=== PATIENT | male | born 1970 | race African-American/Black ===

== ENCOUNTER 2024-11-18 17:41 | Inpatient (IN) | payer OTHER ==
[~2024-11-18] VITALS: Ht 188 cm; Wt 100.3 kg
[2024-11-18 18:03] LABS: BASOPHILS % 0.6 % (0.0-2.0); EOSINOPHILS % 2.3 % (0.0-5.0); HEMATOCRIT. 45.2 % (42.0-52.0); HEMOGLOBIN. 15.1 g/dL (14.0-18.0); LYMPHOCYTES % 40.8 % (20.0-50.0); MEAN CORPUSCULAR HEMOGLOBIN 30.9 pg (28.0-32.0); MEAN CORPUSCULAR HGB CONC 33.3 g/dL (31.0-37.0); MEAN CORPUSCULAR VOLUME 92.9 fL (80.0-94.0); MEAN PLATELET VOLUME 9.5 fl (7.4-10.4); MONOCYTES % 12.7 % (2.0-8.0); NEUTROPHILS % 43.6 % (40.0-76.0); PLATELET 185 x1000/uL (130-400); RED BLOOD CELL COUNT 4.87 mill/uL (4.7-6.1); RED CELL DISTRIBUTION WIDTH 13.5 % (11.6-14.6); WHITE BLOOD COUNT 6.7 x1000/uL (4.5-11.0)
[2024-11-18 18:12] LABS: CHLORIDE 101 mEq/L (98-107); SODIUM 137 mEq/L (136-145)
[2024-11-18 18:13] LABS: CALCIUM 9.7 mg/dL (8.7-10.4); CARBON DIOXIDE 19 mEq/L (21-32)
[2024-11-18 18:18] LABS: CREATININE 1.5 mg/dL (0.6-1.3); GLUCOSE 104 mg/dL (70-105); UREA NITROGEN BLOOD 20 mg/dL (9-23)
[2024-11-18 18:20] LABS: ALANINE AMINOTRANSFERASE 34 IU/L (10-49); ALBUMIN 4.9 g/dL (3.2-4.8); ASPARTATE AMINOTRANSFERASE 43 IU/L (<34); BILIRUBIN DIRECT 0.6 mg/dL (<=3.0); BILIRUBIN TOTAL 2.2 mg/dL (0.1-1.0); PROTEIN TOTAL 7.9 g/dL (6.0-8.3)
[2024-11-18 18:24] LABS: D-DIMER 1.13 mg/L FEU (<0.50); PROTHROMBIN TIME 11.2 sec (9.6-11.0); TROPONIN I HIGH SENSITIVITY 674 ng/L (3.0-53)
[2024-11-18] MEDS: POTASSIUM CHLORIDE 20MEQ/PACKET PO NR (20:57)
[2024-11-18] MEDS: ASPIRIN 325MG EC TABLET PO NR (20:57)
[2024-11-18] MEDS: ENOXAPARIN 80MG/0.8ML SYR SUBCUT NR (21:01)
[2024-11-18 21:32] LABS: CLARITY URINE CLEAR (CLEAR); COLOR URINE YELLOW (YELLOW); GLUCOSE URINE NEGATIVE (NEGATIVE); KETONES URINE 3+ (NEGATIVE); LEUKOCYTE ESTERASE URINE NEGATIVE (NEGATIVE); NITRITE URINE NEGATIVE (NEGATIVE); OCCULT BLOOD URINE TRACE (NEGATIVE); PH URINE 5.5 (4.5-8.0); PROTEIN URINE NEGATIVE (NEGATIVE); SPECIFIC GRAVITY URINE 1.055 (1.005-1.030); UROBILINOGEN URINE 0.2 E.U./dL (0.2-1.0)
[2024-11-18 22:03] LABS: BACTERIA URINE NONE SEEN; RBC URINE 0-2 /hpf (0-2); SQUAMOUS EPITHELIAL CELL URINE RARE /lpf (RARE/1+); WBC URINE 0-2 /hpf (0-2)
[2024-11-18 22:35] VITALS: BP 127/79; PULSE 65; RESP 18; TEMP 36.28068; TEMP 36.696; O2SAT 98
[2024-11-18] MEDS ORDERED: IOHEXOL-350 100 ML BOTTLE ONE (23:24)
[2024-11-19] VITALS: BP 123/70; PULSE 64; RESP 18; TEMP 36.114; O2SAT 100
[2024-11-19] MEDS ORDERED: ZOLPIDEM TARTRATE 5MG TABLET PO PRN
[2024-11-19] MEDS ORDERED: HYDRALAZINE 20MG/ML VIAL IV PRN
[2024-11-19] MEDS ORDERED: ONDANSETRON HCL 4MG/2ML INJ IV PRN
[2024-11-19] MEDS ORDERED: ACETAMINOPHEN 325MG TABLET PO PRN
[2024-11-19] MEDS ORDERED: HYDROCODONE/ACETAMINOPHEN 5/325MG TABLET PO PRN
[2024-11-19] MEDS ORDERED: CLONIDINE 0.1MG TABLET PO PRN
[2024-11-19] MEDS ORDERED: IPRATROPIUM/ALBUTEROL 0.5-3(2.5)MG/3ML NEB NEB PRN
[2024-11-19] MEDS ORDERED: MORPHINE SULFATE 2 MG/ML INJ (NOT FOR IM USE) IV PRN
[2024-11-19] MEDS: DEXT 5%/0.9% NACL 1,000 ML IV SCH (00:25)
[2024-11-19] MEDS ORDERED: ROSU40TA PO (01:39)
[2024-11-19] MEDS ORDERED: AZIL40TA PO (01:39)
[2024-11-19 04:00] VITALS: BP 103/69; PULSE 68; RESP 18; TEMP 36.28068; O2SAT 100
[2024-11-19 05:31] LABS: *AMPHETAMINES SCREEN URINE NEGATIVE (NEGATIVE); *BARBITURATES SCREEN URINE NEGATIVE (NEGATIVE); *BENZODIAZEPINES SCREEN URINE NEGATIVE (NEGATIVE); *COCAINE SCREEN URINE NEGATIVE (NEGATIVE)
[2024-11-19 05:32] LABS: CANNABINOID URINE SCREEN NEGATIVE (NEGATIVE); ECSTASY MDMA SCREEN URINE NEGATIVE (NEGATIVE); METHADONE URINE SCREEN NEGATIVE (NEGATIVE); OPIATES URINE SCREEN NEGATIVE (NEGATIVE); PHENCYCLIDINE URINE SCREEN NEGATIVE (NEGATIVE)
[2024-11-19 07:55] LABS: CREATINE KINASE MB FRACTION 25.9 ng/mL (0.5-3.6)
[2024-11-19 07:57] LABS: CHLORIDE 105 mEq/L (98-107); POTASSIUM 3.5 mEq/L (3.5-5.1); SODIUM 136 mEq/L (136-145)
[2024-11-19 07:58] LABS: CALCIUM 9.2 mg/dL (8.7-10.4); CARBON DIOXIDE 18 mEq/L (21-32)
[2024-11-19 08:00] VITALS: BP 133/77; PULSE 63; RESP 16; TEMP 36.50292; O2SAT 99
[2024-11-19 08:02] LABS: THYROID STIMULATING HORMONE < 0.10 uIU/mL (0.55-4.78)
[2024-11-19 08:03] LABS: GLUCOSE 91 mg/dL (70-105); TRIGLYCERIDE 75 mg/dL (0-150)
[2024-11-19 08:04] LABS: LDL CHOLESTEROL 68 mg/dL (5-100); UREA NITROGEN BLOOD 13 mg/dL (9-23)
[2024-11-19 08:05] LABS: CHOLESTEROL 134 mg/dL (<200); HDL CHOLESTEROL 42 mg/dL (>55)
[2024-11-19 08:41] LABS: CREATINE KINASE 7805 IU/L (46-171)
[2024-11-19 10:14] LABS: BASOPHILS % 0.4 % (0.0-2.0); EOSINOPHILS % 1.9 % (0.0-5.0); HEMATOCRIT. 42.2 % (42.0-52.0); HEMOGLOBIN. 14.3 g/dL (14.0-18.0); LYMPHOCYTES % 21.6 % (20.0-50.0); MEAN CORPUSCULAR HEMOGLOBIN 31.3 pg (28.0-32.0); MEAN CORPUSCULAR HGB CONC 33.9 g/dL (31.0-37.0); MEAN CORPUSCULAR VOLUME 92.2 fL (80.0-94.0); MEAN PLATELET VOLUME 10.4 fl (7.4-10.4); MONOCYTES % 10.7 % (2.0-8.0); NEUTROPHILS % 65.4 % (40.0-76.0); PLATELET 161 x1000/uL (130-400); RED BLOOD CELL COUNT 4.58 mill/uL (4.7-6.1); RED CELL DISTRIBUTION WIDTH 13.3 % (11.6-14.6); WHITE BLOOD COUNT 6.6 x1000/uL (4.5-11.0)
[2024-11-19] MEDS: ASPIRIN 81MG EC TABLET PO SCH (10:39)
[2024-11-19] MEDS: PANTOPRAZOLE SODIUM 40 MG/VIAL IV SCH (10:39)
[2024-11-19] MEDS: ENOXAPARIN 40MG/0.4ML SYR SUBCUT SCH (10:40)
[2024-11-19 12:00] VITALS: BP 129/82; PULSE 63; RESP 18; TEMP 36.00288; O2SAT 97
[2024-11-19] MEDS: AMIODARONE 200MG TABLET PO SCH (12:15)
[2024-11-19] MEDS: POTASSIUM CHLORIDE 20MEQ/PACKET PO NR (12:15)
[2024-11-19] MEDS: MAGNESIUM 2 G PREMIX 50 ML IV NR (14:59)
[2024-11-19 15:29] LABS: TROPONIN I HIGH SENSITIVITY 11089 ng/L (3.0-53)
[2024-11-19 20:00] VITALS: BP 125/88; PULSE 65; RESP 18; TEMP 36.22512; O2SAT 97
[2024-11-19] MEDS ORDERED: NALOXONE HCL 0.4MG/ML VIAL IV PRN (21:45)
[2024-11-20 04:00] VITALS: BP 117/73; PULSE 56; RESP 18; TEMP 36.33624; O2SAT 97
[2024-11-20 08:00] VITALS: BP 125/78; PULSE 59; RESP 16; TEMP 36.50292; O2SAT 97
[2024-11-20 09:11] LABS: BASOPHILS % 0.7 % (0.0-2.0); EOSINOPHILS % 2.5 % (0.0-5.0); HEMATOCRIT. 39.9 % (42.0-52.0); HEMOGLOBIN. 13.6 g/dL (14.0-18.0); LYMPHOCYTES % 25.2 % (20.0-50.0); MEAN CORPUSCULAR HEMOGLOBIN 31.3 pg (28.0-32.0); MEAN CORPUSCULAR HGB CONC 34.1 g/dL (31.0-37.0); MEAN CORPUSCULAR VOLUME 91.7 fL (80.0-94.0); MEAN PLATELET VOLUME 10.4 fl (7.4-10.4); MONOCYTES % 10.8 % (2.0-8.0); NEUTROPHILS % 60.8 % (40.0-76.0); PLATELET 157 x1000/uL (130-400); RED BLOOD CELL COUNT 4.35 mill/uL (4.7-6.1); RED CELL DISTRIBUTION WIDTH 13.8 % (11.6-14.6); WHITE BLOOD COUNT 5.1 x1000/uL (4.5-11.0)
[2024-11-20 09:33] LABS: CHLORIDE 109 mEq/L (98-107); POTASSIUM 3.8 mEq/L (3.5-5.1); SODIUM 140 mEq/L (136-145)
[2024-11-20 09:34] LABS: CARBON DIOXIDE 21 mEq/L (21-32)
[2024-11-20 09:39] LABS: CREATININE 1.1 mg/dL (0.6-1.3); GLUCOSE 82 mg/dL (70-105); UREA NITROGEN BLOOD 12 mg/dL (9-23)
[2024-11-20] MEDS: NITROGLYCERIN SPRAY/4.9GM CAN TL ONE (11:10)
[2024-11-20] MEDS ORDERED: IOHEXOL-350 100 ML BOTTLE ONE (11:59)
[2024-11-20 12:00] VITALS: BP 119/74; PULSE 57; RESP 16; O2SAT 98
[2024-11-20 16:00] VITALS: BP 119/83; PULSE 59; RESP 16; TEMP 36.22512; O2SAT 98
[2024-11-20 20:00] VITALS: BP 128/80; PULSE 61; RESP 16; TEMP 36.89184; O2SAT 98
[2024-11-20] MEDS: ATORVASTATIN CALCIUM 40MG TABLET PO SCH (21:35)
[2024-11-21] VITALS: BP 107/71; PULSE 56; RESP 14; TEMP 36.78072; O2SAT 97
[2024-11-21 04:00] VITALS: BP 98/56; PULSE 61; RESP 16; TEMP 36.55848; O2SAT 98
[2024-11-21 06:42] LABS: BASOPHILS % 0.5 % (0.0-2.0); EOSINOPHILS % 3.3 % (0.0-5.0); HEMATOCRIT. 37.9 % (42.0-52.0); LYMPHOCYTES % 27.3 % (20.0-50.0); MEAN CORPUSCULAR HEMOGLOBIN 31.7 pg (28.0-32.0); MEAN CORPUSCULAR HGB CONC 34.4 g/dL (31.0-37.0); MEAN PLATELET VOLUME 9.8 fl (7.4-10.4); MONOCYTES % 11.8 % (2.0-8.0); NEUTROPHILS % 57.1 % (40.0-76.0); PLATELET 142 x1000/uL (130-400); RED BLOOD CELL COUNT 4.12 mill/uL (4.7-6.1); RED CELL DISTRIBUTION WIDTH 13.6 % (11.6-14.6)
[2024-11-21 06:50] LABS: CARBON DIOXIDE 25 mEq/L (21-32); CHLORIDE 107 mEq/L (98-107); POTASSIUM 3.5 mEq/L (3.5-5.1); SODIUM 140 mEq/L (136-145)
[2024-11-21 06:52] LABS: CALCIUM 9.1 mg/dL (8.7-10.4)
[2024-11-21 06:56] LABS: CREATININE 1.1 mg/dL (0.6-1.3); GLUCOSE 94 mg/dL (70-105)
[2024-11-21 06:57] LABS: UREA NITROGEN BLOOD 11 mg/dL (9-23)
[2024-11-21 08:00] VITALS: BP 105/59; PULSE 61; RESP 16; TEMP 36.6696; O2SAT 97
[2024-11-21] MEDS ORDERED: AMI2 PO ×2 (11:19)
[2024-11-21] MEDS ORDERED: ASPI-1406 PO (11:19)
[2024-11-21] MEDS ORDERED: LIP40 PO (11:23)
[2024-11-21 12:00] VITALS: BP 113/72; PULSE 63; RESP 18; TEMP 36.72516; O2SAT 98
[2024-11-21 13:11] VITALS: BP 113/74; PULSE 61; TEMP 97.8; O2SAT 98
[2024-11-25] MEDS ORDERED: AMIODARONE 200MG TABLET PO SCH (09:00)
== END 2024-11-21 14:00 | disposition home or self-care (01) | DRG 282 ==
LOC: ER 17:41 → 7WST 19:01
PROVIDERS: ADMIT Internal Medicine; ATTEND Internal Medicine
DX: I47.10 Supraventricular tachycardia, unspecified (principal); I21.A1 Myocardial infarction type 2; I45.10 Unspecified right bundle-branch block; E87.6 Hypokalemia; I10 Essential (primary) hypertension; E78.5 Hyperlipidemia, unspecified; Z86.74 Personal history of sudden cardiac arrest; Z95.810 Presence of automatic (implantable) cardiac defibrillator; Z79.899 Other long term (current) drug therapy
CPT/HCPCS: 36415; 71045; 71275; 75571; 80048; 80061; 80076; 80305; 81003; 82550; 82553; 83036; 83880; 84443; 84484; 85025; 85379; 93005; 93306; 93970; 99291; J1650; J2470; J3475; J7042; Q9967